=== PATIENT | female | born 1965 | race Caucasian/White ===

== ENCOUNTER 2020-05-21 08:29 | Outpatient (CLI) | payer BC, SELFPAY ==
--- NOTE | ~2020-05-21 | US_ITS ---
US abdomen limited DATE: 05/21/2020 11:14 INDICATION: Epigastric abdominal pain, right upper quadrant abdominal pain. Bloating. TECHNIQUE: Real-time imaging of liver, pancreas, gallbladder areas COMPARISON: None FINDINGS: There is hepatic steatosis. No hepatic space-occupying mass lesion is evident. Normal hepat opedal portal venous flow direction. No gallstones or gallbladder wall thickening or abnormal pericholecystic fluid collection. Negative s onographic Pedersen's sign. The common bile duct measures 2.7 mm, normal. The pancreas is partially obscured by bowel gas, not optimally visualized. IMPRESSION: Hepatic steatosis Pancreas is not well demonstrated due to interference from bowel gas; otherwise unremarkable examinat ion. Reviewed, dictated and finalized at [facility]. 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
== END 2020-05-21 08:30 | disposition home or self-care (01) ==
PROVIDERS: Family Provider Family Medicine; PCP Internal Medicine; Visit Provider Nurse Practitioner
DX: R10.13 Epigastric pain (principal); K76.0 Fatty (change of) liver, not elsewhere classified
CPT/HCPCS: 76705

== ENCOUNTER 2020-05-29 07:32 | Outpatient (CLI) | payer BC, SELFPAY ==
--- NOTE | ~2020-05-29 | NM_ITS ---
EXAMINATION: NM hepatobiliary w pharm DATE: 05/29/2020 10:31 INDICATION: Epigastric abdominal pain. COMPARISON: Ultrasound 05/21/2020 TECHNIQUE: 5.097 mCi Tc-99m mebrofenin (Choletec) was administered intravenously. Scintigraphic imag es of the abdomen were obtained for one hour. Then, 2 mcg sincalide (Kinevac) IV was administered, an d imaging was continued for 30 minutes. FINDINGS: There is normal clearance of radiotracer from the blood pool. There is homogeneous tracer u ptake by the liver. Activity progresses to the bowel and gallbladder. Gallbladder ejection fraction (GBEF) was 9%. Note that most patients with gallbladder dysfunction have GBEF < 35%, which overlaps w ith the broad normal range of 10-90%. IMPRESSION: 1. Low gallbladder ejection fraction, consistent with gallbladder dysfunction and/or chronic cholecy stitis. 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 Low gallbladder ejection fraction, consistent with gallbladder dysfunction and/or chronic cholecystitis.
== END 2020-05-29 07:33 | disposition home or self-care (01) ==
PROVIDERS: PCP Internal Medicine; Visit Provider Nurse Practitioner
DX: R10.13 Epigastric pain (principal)
CPT/HCPCS: 78227; A9537; J2805

== ENCOUNTER → 2020-08-03 15:23 | Outpatient (CLI) | payer BC, SELFPAY ==
--- NOTE | ~2020-08-03 | MM_ITS ---
EXAMINATION: MM screening [facility] w [facility] HISTORY: Screening TECHNIQUE: Craniocaudal and mediolateral oblique 3-D tomosynthesis images were obtained and synthetic 2-D images were generated. CAD analysis was submitted and interpreted. COMPARISON: No prior mammogram is available for comparison at this institution. BREAST PARENCHYMAL COMPOSITION: There are scattered areas of fibroglandular density. FINDINGS: There are benign-appearing bilateral breast masses. There is no evidence of suspicious mass , calcification, or architectural distortion to suggest malignancy in either breast. There has been n o suspicious interval change. IMPRESSION: 1. No mammographic evidence of malignancy. 2. Recommend routine screening mammography in one year. BI-RADS Category 2: Benign finding(s). 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
== END ==
PROVIDERS: PCP Internal Medicine; Visit Provider Nurse Practitioner
DX: Z12.31 Encounter for screening mammogram for malignant neoplasm of breast (principal)
CPT/HCPCS: 77063; 77067

== ENCOUNTER 2020-09-06 14:30 | Outpatient (RCR) | payer BC, SELFPAY ==
[2020-06-08 09:38] VITALS: BMI 36.0
[2020-06-08 10:03] VITALS: BMI 36.0
== END 2020-09-06 23:59 | disposition home or self-care (01) ==
LOC: ANHDMC 14:30
PROVIDERS: PCP Internal Medicine; Visit Provider Internal Medicine
DX: E11.65 Type 2 diabetes mellitus with hyperglycemia (principal); Z71.3 Dietary counseling and surveillance; Z71.89 Other specified counseling
CPT/HCPCS: 97802; G0108; G0109

== ENCOUNTER 2020-09-13 14:38 | Outpatient (RCR) | payer BC, SELFPAY | END 2020-11-20 15:22 | disposition home or self-care (01) | LOC: ANHDMC 14:38 | PROVIDERS: PCP Internal Medicine; Visit Provider Internal Medicine | DX: E11.9 Type 2 diabetes mellitus without complications (principal); Z71.89 Other specified counseling | CPT/HCPCS: G0109 ==

== ENCOUNTER 2022-02-19 12:10 | Outpatient (CLI) | payer BC, SELFPAY ==
--- NOTE | ~2022-02-19 | DEXA_ITS ---
Bone Density Report Name: LOUIE SOLIS Age: 57 Sex: Female Ethnicity: White Date of : 1965 Indication: postmenopausal; screening for osteoporosis; hysterectomy; Referring Provider: Cadence Rachel Study: Bone densitometry was performed. Exam Date: February 19, 2022 Accession number: [id number] Bone Density: Region BMD T-score Z-score Classification AP Spine (L1-L4) 1.065 0.2 1.4 Normal Femoral Neck (Left) 0.904 0.5 1.7 Normal Total Hip (Left) 1.127 1.5 2.4 Normal Femoral Neck (Right) 0.966 1.1 2.2 Normal Total Hip (Right) 1.045 0.8 1.7 Normal Total Hip Mean 1.086 1.2 2.1 Normal World Health Organization criteria for BMD impression classify patients as: Normal (T-score at or above -1.0), Osteopenia (T-score between -1.0 and -2.5), or Osteoporosis (T-score at or below -2.5). 10-year Fracture Risk: FRAX not reported because: All T-scores for Spine Total, Hip Total, Femoral Neck at or above -1.0 Clinical Information Provided by Patient: Has the following medical conditions: Hysterectomy Patient maximum height was 64 Menopause Age: 41 No regular weight bearing exercise Drinks caffeinated beverages Onset of menses at age 12 Number of children 3 Impression: The patient has normal bone mass. Discussion: BONE DENSITY IS ABOVE THE MINIMUM DESIRABLE LEVEL AT ALL SKELETAL SITES TESTED. This patient?s bone mineral density is above the minimum desirable level (T-score -1.0 or better) at all sites measured. The patient should follow a healthful lifestyle (good nutrition with adequate calcium and vitamin D, and appropriate weight-bearing exercise). Follow-Up: Consider repeating this study in 5 years or sooner if there is some new clinical indication. Reported by: ESE on 02/19/2022 12:33:00 PM. 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 [facility]
== END 2022-02-19 12:11 ==
LOC: MICIMG 12:11
PROVIDERS: PCP Nurse Practitioner; Visit Provider Nurse Practitioner
DX: Z78.0 Asymptomatic menopausal state (principal)
CPT/HCPCS: 77080

== ENCOUNTER 2022-07-29 | Day surgery (SDC) | payer BC, SELFPAY ==
[2022-07-15 11:02] VITALS: BMI 31.9
[2022-07-29 06:20] VITALS: BP 135/82; PULSE 68; RESP 16; TEMP 35.8; O2SAT 100; BMI 32.0
[2022-07-29] MEDS: LACTATED RINGERS 1,000 ML 150 ML IV CONT (06:41)
[2022-07-29 06:43] LABS: Glucose Point of Care 163 mg/dl (65-105)
--- NOTE | 2022-07-29 07:26 | WPDANESEPPF ---
Anes - Initial Pre Proc Eval Procedure: Operation Date: 07/29/22 07:30 Proposed Procedures p Screening Colonoscopy - Osmin Gonzalez MD Date/Time: 07/29/22 07:26 Surgeon: Osmin Gonzalez MD Pre Op Diagnosis: neoplasm screening Patient Data Age: 57 Gender: F Height: 1.63 m Weight: 84.6 kg Last Vital Signs Temp 96.5 F L 07/29/22 06:20 Pulse 68 07/29/22 06:20 Resp 16 07/29/22 06:20 BP 135/82 07/29/22 06:20 Pulse Ox 100 07/29/22 06:20 O2 Del Method Room Air 07/29/22 06:20 Allergies Allergy/AdvReac Type Severity Reaction Status Date / Time No Known Allergies Allergy Verified 07/29/22 06:27 Home Medications Medication Instructions Recorded Confirmed Type blood sugar diagnostic (Accu-Chek #50 ea 09/21/20 07/29/22 Rx Guide test strips) lancets (Accu-Chek Softclix #300 ea 10/02/20 07/29/22 Rx Lancets) sitagliptin phosphate 100 mg 100 mg PO DAILY #90 tabs 02/19/22 07/29/22 Rx tablet (Januvia) dapagliflozin 10 mg tablet 10 mg PO DAILY #30 tabs 05/02/22 07/29/22 Rx (Farxiga) rosuvastatin 5 mg tablet 5 mg PO DAILY #30 tabs 06/12/22 07/29/22 Rx losartan 25 mg tablet 25 mg PO DAILY #90 tabs 06/21/22 07/29/22 Rx sodium,potassium,mag sulfates 17.5 See Rx Instructions PO .COMPLEX 07/02/22 07/29/22 Rx gram-3.13 gram-1.6 gram oral soln #354 mL (Suprep Bowel Prep Kit) pantoprazole 40 mg tablet,delayed 40 mg PO QAM PRN acid reflux #30 07/18/22 07/29/22 Rx release tabs Laboratory Tests 07/29/22 06:35 POC Capillary Glucose 163 mg/dl H mg/dl (65-105) Patient hx anesthesia problems: none Family hx anesthesia problems: none Results Review: All pre-operative results and documents have been reviewed as part of the pre-operative evaluation. [facility] Past Medical History Medical History Essential (primary) hypertension Type 2 diabetes mellitus Surgical History Surgical History History of section History of hysterectomy Family History Family History Mother Diabetes mellitus Father Acute myocardial infarction Hypertension Kidney disease Atrial fibrillation Social History Social History (Updated 06/25/22 @ 12:37 by Angela Hirsch MA) Smoking packs per day: 1 Smoking cigarettes per day: 20.0 Years smoked: 10 Smoking pack-years: 10.00 Smoking status: Current some day smoker Tobacco type: cigarettes Second hand tobacco smoke exposure: Yes Smoking end date: 03/21/21 Alcohol intake: former Alcohol use details: Occasional social ETOH Substance use: never Substance use type: does not use Lack of Transportation: No Lack of Food: Never True Current Housing: I Have Housing Concerned About Future Housing: No Difficulty Paying Gas/Electric Bills: No Difficulty Paying for Meds: No Currently Unemployed: No Education: High School Diploma/GED Difficulty w/ Childcare or Family Care: No Living arrangements: with family Occupation/Education: occupation Additional occupation/education comments: Works for [employer] Gender identity (if verbalized by the patient): Female Sexual Orientation (if Verbalized by the Patient): Straight or Heterosexual Spiritual care concerns: No Anes - Eval Final PreProcedure Day of Procedure 07/29/22 07:26 Patient weight: obese Heart: regular rate and rhythm Lungs: clear to auscultation Airway: Mallampati scale class II Neurological: alert and oriented Last oral intake: >/= 8 hours ASA classification: III Emergent: no Anesthetic plan: proceed Anesthesia type and monitoring: general GIVS and standard monitoring Results Review: All pre-operative results and documents have been reviewed as part of the pre-operative evaluation. Informed Consent: The emily
--- NOTE | 2022-07-29 07:27 | PM.HPGS ---
History of Present Illness History of Present Illness Consent: Risks, benefits, and alternatives have been discussed and questions answered. Patient agrees to proceed with procedure. Chief complaint: neoplasm screening Narrative: Sindhu Momin is a 57 year old female Presents today for screening colonoscopy. Patient's current weight appetite and bowel movements are normal. She denies abdominal pain. She has had no bleeding. Family history is significant for an uncle with colon cancer. No first-degree relatives have polyps or cancer. Review of Systems Review of Systems: Review of systems noncontributory. [facility] Past Medical History Medical History Essential (primary) hypertension Type 2 diabetes mellitus Surgical History Surgical History History of section History of hysterectomy Family History Family History Mother Diabetes mellitus Father Acute myocardial infarction Hypertension Kidney disease Atrial fibrillation Social History Social History (Updated 06/25/22 @ 12:37 by Angela Hirsch MA) Smoking packs per day: 1 Smoking cigarettes per day: 20.0 Years smoked: 10 Smoking pack-years: 10.00 Smoking status: Current some day smoker Tobacco type: cigarettes Second hand tobacco smoke exposure: Yes Smoking end date: 03/21/21 Alcohol intake: former Alcohol use details: Occasional social ETOH Substance use: never Substance use type: does not use Lack of Transportation: No Lack of Food: Never True Current Housing: I Have Housing Concerned About Future Housing: No Difficulty Paying Gas/Electric Bills: No Difficulty Paying for Meds: No Currently Unemployed: No Education: High School Diploma/GED Difficulty w/ Childcare or Family Care: No Living arrangements: with family Occupation/Education: occupation Additional occupation/education comments: Works for [employer] Gender identity (if verbalized by the patient): Female Sexual Orientation (if Verbalized by the Patient): Straight or Heterosexual Spiritual care concerns: No Meds Home Medications and Allergies Home Medications Medication Instructions Recorded Confirmed Type blood sugar diagnostic (Accu-Chek #50 ea 09/21/20 07/29/22 Rx Guide test strips) lancets (Accu-Chek Softclix #300 ea 10/02/20 07/29/22 Rx Lancets) sitagliptin phosphate 100 mg 100 mg PO DAILY #90 tabs 02/19/22 07/29/22 Rx tablet (Januvia) dapagliflozin 10 mg tablet 10 mg PO DAILY #30 tabs 05/02/22 07/29/22 Rx (Farxiga) rosuvastatin 5 mg tablet 5 mg PO DAILY #30 tabs 06/12/22 07/29/22 Rx losartan 25 mg tablet 25 mg PO DAILY #90 tabs 06/21/22 07/29/22 Rx sodium,potassium,mag sulfates 17.5 See Rx Instructions PO .COMPLEX 07/02/22 07/29/22 Rx gram-3.13 gram-1.6 gram oral soln #354 mL (Suprep Bowel Prep Kit) pantoprazole 40 mg tablet,delayed 40 mg PO QAM PRN acid reflux #30 07/18/22 07/29/22 Rx release tabs Allergies Allergy/AdvReac Type Severity Reaction Status Date / Time No Known Allergies Allergy Verified 07/29/22 06:27 Vital Signs Vital Signs - 24 hr 07/29/22 06:20 Temperature 96.5 F L Pulse Rate 68 Respiratory Rate 16 Blood Pressure 135/82 Pulse Oximetry 100 Oxygen Delivery Room Air Exam Narrative: Physical exam reveals patient to be alert. Vital signs stable. HEENT exam is unremarkable. Patient is anicteric. Lungs are clear to auscultation and percussion. Heart is without murmur or extra sounds. Abdomen bowel sounds present soft nontender with no organomegaly. Digital external rectal exam is normal. Assessment and Plan Assessment and plan (1) Screening for colon cancer: Code(s): Z12.11 - Encounter for screening for malignant neoplasm of colon
[2022-07-29 07:52] VITALS: BP 107/52; PULSE 72; RESP 13; O2SAT 98
[2022-07-29 08:02] VITALS: BP 116/70; PULSE 68; RESP 16; O2SAT 97
[2022-07-29 08:12] VITALS: BP 132/86; PULSE 58; RESP 16; O2SAT 99
== END 2022-07-29 08:42 | disposition home or self-care (01) ==
PROVIDERS: PCP Internal Medicine; Visit Provider Internal Medicine Gastroenterology
PROC: 0DJD8ZZ Inspection of Lower Intestinal Tract, Via Natural or Artificial Opening Endoscopic (ICD-10-PCS; CPT 45378; principal; 2022-07-29 07:30)
DX: Z12.11 Encounter for screening for malignant neoplasm of colon (principal); K63.5 Polyp of colon; K57.30 Diverticulosis of large intestine without perforation or abscess without bleeding; K64.8 Other hemorrhoids; E11.9 Type 2 diabetes mellitus without complications; I10 Essential (primary) hypertension; Z79.84 Long term (current) use of oral hypoglycemic drugs; F17.210 Nicotine dependence, cigarettes, uncomplicated; E66.9 Obesity, unspecified; Z68.32 Body mass index [BMI] 32.0-32.9, adult
CPT/HCPCS: 45385; 82948; 88305; J2704; J3010; J7120

== ENCOUNTER → 2022-08-30 14:35 | Outpatient (CLI) | payer BC, SELFPAY ==
--- NOTE | ~2022-08-30 | MM_ITS ---
EXAMINATION: MM screening [facility] BI w [facility] HISTORY: Screening mammogram TECHNIQUE: Craniocaudal and mediolateral oblique 3-D tomosynthesis images were obtained and synthetic 2-D images were generated. CAD analysis was submitted and interpreted. COMPARISON: 08/03/2020, 05/11/2005 BREAST PARENCHYMAL COMPOSITION: There are scattered areas of fibroglandular density. FINDINGS: Stable bilateral breast masses are consistent with benign findings. No suspicious mass, efren cification, or architectural distortion are identified in either breast to suggest malignancy. There has been no suspicious interval change. IMPRESSION: 1. No mammographic evidence of malignancy. 2. Recommend routine screening mammography in one year. BI-RADS Category 2: Benign finding(s). 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
== END ==
PROVIDERS: PCP Nurse Practitioner; Visit Provider Nurse Practitioner
DX: Z12.31 Encounter for screening mammogram for malignant neoplasm of breast (principal)
CPT/HCPCS: 77063; 77067

== ENCOUNTER 2023-02-27 09:40 | Outpatient (CLI) | payer BC, SELFPAY ==
--- NOTE | ~2023-02-27 | XR_ITS ---
Clinical Indication: Tobacco use PA and lateral views of the chest: Comparison: 09/26/2014 Findings: The lungs are clear, without evidence of focal consolidation or pleural effusion. Cardiome diastinal silhouette is within normal limits. Bones and soft tissues are unremarkable. Impression: Normal chest. Reviewed, dictated and finalized at location . 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
== END 2023-02-27 09:41 ==
PROVIDERS: PCP Family Medicine; Visit Provider Family Medicine
DX: Z72.0 Tobacco use (principal)
CPT/HCPCS: 71046

== ENCOUNTER 2023-07-22 09:52 | Outpatient (CLI) | payer BC, SELFPAY ==
--- NOTE | ~2023-07-22 | XR_ITS ---
Left Knee Technique: AP, lateral, and sunrise views were obtained. Clinical History: Pain Findings: No fracture or dislocation is seen. Osseous alignment is anatomic. There is mild spurring a t the medial joint line and intercondylar notch, and from the patella. Soft tissues are unremarkable. No joint effusion is seen. Impression: Mild degenerative spurring, as above. Reviewed, dictated and finalized at location M. Impression: Mild degenerative spurring, as above.
--- NOTE | ~2023-07-22 | XR_ITS ---
Right Knee Technique: AP, lateral, and sunrise views were obtained. Clinical History: Pain Findings: No fracture or dislocation is seen. Osseous alignment is anatomic. Minimal tricompartmental degenerative spurring present. Soft tissues are unremarkable. No joint effusion is seen. Impression: Minimal degenerative spurring, as above. Reviewed, dictated and finalized at location . Impression: Minimal degenerative spurring, as above.
== END 2023-07-22 09:53 ==
LOC: MICIMG 09:54
PROVIDERS: PCP Family Medicine; Visit Provider Family Medicine
DX: M25.761 Osteophyte, right knee (principal); M25.762 Osteophyte, left knee
CPT/HCPCS: 73562